=== PATIENT | male | born 1965 | race Caucasian/White ===

== ENCOUNTER 2017-10-21 10:00 | Emergency (ER) | payer OTHER ==
[~2017-10-21 10:00] MED LIST: DEBROX15 ML OT
[2017-10-21] MEDS ORDERED: FLONASE ALLERG9.9 ML NAS (10:51)
[2017-10-21] MEDS ORDERED: Motrin,Rufen800 MG PO (10:51)
[2017-10-21] MEDS ORDERED: LEVAQUIN750 M1 PO (10:51)
== END 2017-10-21 13:27 | disposition home or self-care (01) ==
LOC: ED 10:00
DX: J01.90 Acute sinusitis, unspecified (principal); Z88.0 Allergy status to penicillin

== ENCOUNTER 2018-08-31 18:55 | Emergency (ER) | payer OTHER ==
[~2018-08-31] VITALS: Ht 175.2 cm; Wt 147.4 kg
[~2018-08-31 18:55] MED LIST changes: +FLONASE ALLERG9.9 ML NAS; +LEVAQUIN750 M1 PO; +Motrin,Rufen800 MG PO
[2018-08-31] MEDS ORDERED: SEPTDS PO (19:16)
== END 2018-08-31 19:25 | disposition home or self-care (01) ==
LOC: ED 18:55
DX: L02.01 Cutaneous abscess of face (principal); Z88.0 Allergy status to penicillin; Z79.2 Long term (current) use of antibiotics; Z79.899 Other long term (current) drug therapy

== ENCOUNTER 2021-11-30 01:21 | Emergency (ER) | payer OTHER ==
[~2021-11-30] VITALS: Ht 175.2 cm; Wt 136.1 kg
[~2021-11-30 01:21] MED LIST changes: +SEPTDS PO
[2021-11-30 03:16] LABS: BASO # 0.1 10*3/uL (0.0-0.1); BASO % 0.6 % (0.0-1.0); EOS # 0.2 10*3/uL (0.0-0.4); EOS % 2.5 % (1.0-4.0); HEMATOCRIT 40.2 % (42.0-52.0); LYMPH # 2.1 10*3/uL (1.3-4.4); LYMPH % 25.6 % (27.0-41.0); MEAN CELL VOLUME 92.2 fl (80.0-94.0); MEAN CORPUSCULAR HGB 30.7 pg (27.0-31.0); MEAN CORPUSCULAR HGB CONC 33.3 g/dl (33.0-37.0); MEAN PLATELET VOLUME 10.4 fl (9.6-12.3); MONO # 0.8 10*3/uL (0.1-1.0); MONO % 9.3 % (3.0-9.0); NEUT % 61.8 % (47.0-73.0); PLATELET COUNT AUTOMATED 255 10*3/uL (130-400); RED BLOOD COUNT 4.36 10*6/uL (4.50-5.90); RED CELL DISTRI WIDTH 14.3 % (0-14.5); WHITE BLOOD COUNT 8.1 10*3/uL (4.8-10.8)
[2021-11-30 03:26] LABS: ACT PARTIAL THROMBO TIME 26.6 SECONDS (20.0-32.1); INTERNATIONAL NORM RATIO 0.9 (2.0-3.5)
[2021-11-30 03:33] LABS: ALBUMIN 3.5 gm/dl (3.1-4.5); CREATININE 1.51 mg/dL (0.70-1.30); POTASSIUM 3.5 mmol/L (3.5-5.1); TOTAL PROTEIN 7.7 gm/dL (6.4-8.2)
[2021-11-30] MEDS ORDERED: VIBRAMYCIN100 MG PO (04:34)
[2021-11-30] MEDS ORDERED: PREDNISONE20 M1 PO (04:34)
== END 2021-11-30 04:55 | disposition home or self-care (01) ==
LOC: ED 01:21
PROVIDERS: Emergency Medicine
DX: M31.0 Hypersensitivity angiitis (principal); Z88.0 Allergy status to penicillin; Z79.899 Other long term (current) drug therapy; Z79.2 Long term (current) use of antibiotics

== ENCOUNTER → 2022-01-02 | Outpatient (CLI) | payer OTHER ==
[~2022-01-02] MED LIST changes: +PREDNISONE20 M1 PO; +VIBRAMYCIN100 MG PO
[2022-01-02 12:48] LABS: HEMATOCRIT 44.3 % (42.0-52.0); MEAN CELL VOLUME 87.2 fl (80.0-94.0); MEAN CORPUSCULAR HGB 30.1 pg (27.0-31.0); MEAN CORPUSCULAR HGB CONC 34.5 g/dl (33.0-37.0); MEAN PLATELET VOLUME 9.9 fl (9.6-12.3); PLATELET COUNT AUTOMATED 336 10*3/uL (130-400); RED BLOOD COUNT 5.08 10*6/uL (4.50-5.90); RED CELL DISTRI WIDTH 13.1 % (0-14.5); RETICULOCYTE % 1.75 % (0.50-2.50); WHITE BLOOD COUNT 8.8 10*3/uL (4.8-10.8)
[2022-01-02 13:05] LABS: ALBUMIN 3.5 gm/dl (3.1-4.5); CREATININE 1.51 mg/dL (0.70-1.30); TOTAL PROTEIN 7.8 gm/dL (6.4-8.2); URIC ACID 7.6 mg/dL (3.5-7.2)
[2022-01-02 13:12] LABS: THYROID STIM HORMONE (HS) 1.14 uIU/ml (0.358-4.75)
[2022-01-02 13:21] LABS: BILIRUBIN 1+ (Negative); BLOOD 1+ (Negative); CLARITY Cloudy (Clear); COLOR Dark Yellow (Yellow); GLUCOSE Negative (Negative); KETONE Trace (Negative); LEUKO ESTERASE Trace (Negative); NITRITE Negative (Negative); PH 5.5 (4.5-8.0); SPECIFIC GRAVITY >= 1.030 (1.001-1.030)
[2022-01-02 13:27] LABS: FERRITIN 173.7 ng/mL (22.0-322.0)
[2022-01-02 13:34] LABS: CALCIUM OXALATE CRYSTALS 1+; MUCOUS 3+
[2022-01-02 13:34] LABS: ATYPICAL LYMPHS 2 % (0-0); BASOPHILS 2 % (0-1); TOTAL CELLS COUNTED 100 #CELLS
[2022-01-02 13:35] LABS: PLATELET SUFFICIENCY NORMAL (NORMAL); POLYCHROMASIA SLIGHT
[2022-01-03 05:06] LABS: RHEUMATOID ARTHRITIS FACTOR <10.0 IU/mL (<14.0); TOTAL PROTEIN, SERUM 6.9 g/dL (6.0-8.5)
[2022-01-03 15:07] LABS: ANTI-DSDNA ANTIBODIES <1 IU/mL (0-9)
[2022-01-03 16:08] LABS: A/G RATIO 0.9 (0.7-1.7); ALBUMIN 3.3 g/dL (2.9-4.4); ALPHA-1-GLOBULIN 0.3 g/dL (0.0-0.4); BETA GLOBULIN 1.2 g/dL (0.7-1.3); GAMMA GLOBULIN 1.1 g/dL (0.4-1.8); GLOBULIN, TOTAL 3.6 g/dL (2.2-3.9); M-SPIKE Not Observed g/dL (Not Observed)
== END | disposition home or self-care (01) ==
LOC: LAB 10:10 → WOUNDCARE 10:10
PROVIDERS: Family Medicine; ATTEND Nurse Practitioner Family
DX: R79.89 Other specified abnormal findings of blood chemistry (principal); R53.83 Other fatigue; R74.8 Abnormal levels of other serum enzymes; E55.9 Vitamin D deficiency, unspecified

== ENCOUNTER → 2022-01-11 | Outpatient (CLI) | payer OTHER ==
[2022-01-11 14:16] LABS: CHLORIDE 107 mmol/L (98-107); POTASSIUM 3.9 mmol/L (3.5-5.1); SODIUM 140 mmol/L (136-145)
[2022-01-11 14:26] LABS: ALKALINE PHOSPHATASE 76 U/L (45-117); BUN 26 mg/dl (7-24); CREATININE 1.23 mg/dL (0.70-1.30); SGOT/AST 21 IU/L (3-35); SGPT/ALT 51 U/L (12-78)
== END | disposition home or self-care (01) ==
LOC: US 01-10 09:30 → LAB 01:38 → US 01:38
PROVIDERS: Family Medicine; ATTEND Nurse Practitioner Family
DX: L97.929 Non-pressure chronic ulcer of unspecified part of left lower leg with unspecified severity (principal); R22.42 Localized swelling, mass and lump, left lower limb; D69.2 Other nonthrombocytopenic purpura; Z88.0 Allergy status to penicillin; Z91.048 Other nonmedicinal substance allergy status

== ENCOUNTER → 2022-01-17 | Outpatient (CLI) | payer OTHER | LOC: WOUNDCARE 00:31 | PROVIDERS: ATTEND Nurse Practitioner Family | DX: L97.822 Non-pressure chronic ulcer of other part of left lower leg with fat layer exposed (principal); D69.2 Other nonthrombocytopenic purpura; R94.4 Abnormal results of kidney function studies; I10 Essential (primary) hypertension ==

== ENCOUNTER → 2022-01-23 | Outpatient (CLI) | payer OTHER | LOC: WOUNDCARE 10:09 | PROVIDERS: ATTEND Nurse Practitioner Family | DX: L97.822 Non-pressure chronic ulcer of other part of left lower leg with fat layer exposed (principal); T81.89XA Other complications of procedures, not elsewhere classified, initial encounter; D69.2 Other nonthrombocytopenic purpura; R94.4 Abnormal results of kidney function studies; I10 Essential (primary) hypertension; Y83.8 Other surgical procedures as the cause of abnormal reaction of the patient, or of later complication, without mention of misadventure at the time of the procedure; Y92.238 Other place in hospital as the place of occurrence of the external cause ==

== ENCOUNTER → 2022-01-30 | Outpatient (CLI) | payer OTHER | LOC: WOUNDCARE 01:51 | PROVIDERS: ATTEND Nurse Practitioner Family | DX: L97.822 Non-pressure chronic ulcer of other part of left lower leg with fat layer exposed (principal); T81.89XD Other complications of procedures, not elsewhere classified, subsequent encounter; D69.2 Other nonthrombocytopenic purpura; I10 Essential (primary) hypertension; R94.4 Abnormal results of kidney function studies; Y83.8 Other surgical procedures as the cause of abnormal reaction of the patient, or of later complication, without mention of misadventure at the time of the procedure ==

== ENCOUNTER 2022-10-12 16:29 | Emergency (ER) | payer OTHER ==
[~2022-10-12] VITALS: Wt 133.8 kg
[2022-10-12] MEDS ORDERED: CORTISPORIN SUS10 ML OT (18:44)
[2022-10-12] MEDS ORDERED: CLINDAMYCIN HC300 MG PO (18:44)
== END 2022-10-12 20:32 | disposition home or self-care (01) ==
LOC: ED 16:29
DX: H66.91 Otitis media, unspecified, right ear (principal); H60.91 Unspecified otitis externa, right ear; Z88.0 Allergy status to penicillin